=== PATIENT | female | born 2000 | race Caucasian/White ===

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

== ENCOUNTER 2024-10-04 15:00 | Outpatient (REF) | payer MEDICAID, SELFPAY ==
[2024-10-04 14:44] LABS: Bilirubin Negative (Negative); Blood Large (Negative); Clarity Cloudy (Clear); Glucose Negative (Negative); Ketones Negative (Negative); Leukocyte Esterase Moderate (Negative); Nitrite Negative (Negative); Specific Gravity >= 1.030 (1.005-1.025); Urobilinogen 0.2 mg/dL (Up to 0.2); pH 5.5 (5-8)
[2024-10-04 14:52] LABS: Hemoglobin A1C 6.1 % (<5.7)
[2024-10-04 14:57] LABS: WBC 20-50 HPF (0-5)
[2024-10-04 14:58] LABS: Bacteria Moderate HPF (Negative); C & S Indicated? No/Sq. Contamination; Casts Negative LPF (Negative); Crystals Negative HPF (Negative); Epithelial Cells Moderate HPF (Negative); Mucus Negative (Negative)
[2024-10-04 15:47] LABS: COMMENT (LAB VIEW ONLY) 276.67 mg/dL; Microalb ug/mg Crea 18.6 ug/mg Cr
== END 2024-10-04 15:01 | disposition home or self-care (01) ==
LOC: NCHCN 15:00
PROVIDERS: PCP Nurse Practitioner Family; Visit Provider Nurse Practitioner Family
DX: E11.9 Type 2 diabetes mellitus without complications (principal)
CPT/HCPCS: 81003; 81015; 82043; 82570; 83036

== ENCOUNTER 2024-12-26 12:55 | Outpatient (REF) | payer MEDICAID, SELFPAY ==
[2024-12-26 16:10] LABS: Hemoglobin A1C 5.5 % (<5.7)
[2024-12-26 16:26] LABS: Bilirubin Negative (Negative); Blood Moderate (Negative); Clarity Cloudy (Clear); Glucose Negative (Negative); Ketones Negative (Negative); Leukocyte Esterase Large (Negative); Nitrite Negative (Negative); Specific Gravity 1.025 (1.005-1.025); Urobilinogen 0.2 mg/dL (Up to 0.2)
[2024-12-26 16:31] LABS: Calculated LDL 127 mg/dL (<100); Cholesterol 202 mg/dL (<200); HDL Cholesterol 57 mg/dL (>or=50); Triglyceride 94 mg/dL (<150)
[2024-12-26 16:37] LABS: Bacteria Moderate HPF (Negative); C & S Indicated? No/Sq. Contamination; Casts Negative LPF (Negative); Crystals Negative HPF (Negative); Epithelial Cells Moderate HPF (Negative); Mucus Trace (Negative); WBC 20-50 HPF (0-5)
[2024-12-26 17:25] LABS: Microalb ug/mg Crea 9.3 ug/mg Cr
== END 2024-12-26 12:56 | disposition home or self-care (01) ==
LOC: NCHCN 12:55
PROVIDERS: PCP Nurse Practitioner Family; Visit Provider Nurse Practitioner Family
DX: E78.5 Hyperlipidemia, unspecified (principal); E11.9 Type 2 diabetes mellitus without complications
CPT/HCPCS: 80061; 81003; 81015; 82043; 82570; 83036

== ENCOUNTER 2025-01-23 14:46 | Outpatient (REF) | payer MEDICAID, SELFPAY ==
[2025-01-23 22:11] LABS: COMMENT (LAB VIEW ONLY) 180.02 mg/dL; Microalb ug/mg Crea 7.3 ug/mg Cr
[2025-01-24 10:17] LABS: Bilirubin Negative (Negative); Blood Large (Negative); Clarity Cloudy (Clear); Glucose Negative (Negative); Ketones Negative (Negative); Leukocyte Esterase Small (Negative); Nitrite Negative (Negative); Specific Gravity 1.025 (1.005-1.025); Urobilinogen 0.2 mg/dL (Up to 0.2)
[2025-01-24 10:24] LABS: Bacteria Moderate HPF (Negative); C & S Indicated? No; Casts Negative LPF (Negative); Crystals Few Amorphous HPF (Negative); Epithelial Cells Many HPF (Negative); Mucus Moderate (Negative); RBC 20-50 HPF (0-2)
== END 2025-01-23 14:47 | disposition home or self-care (01) ==
LOC: NCHCN 14:46
PROVIDERS: PCP Nurse Practitioner Family; Visit Provider Nurse Practitioner Family
DX: E11.9 Type 2 diabetes mellitus without complications (principal)
CPT/HCPCS: 81003; 81015; 82043; 82570